=== PATIENT | male | born 2000 | race Caucasian/White ===

== ENCOUNTER 2023-10-14 13:28 | Emergency (ER) | payer OTHER ==
[~2023-10-14] VITALS: Ht 175.3 cm; Wt 79.4 kg
[2023-10-14] MEDS ORDERED: IPRATROPIUM BROMIDE 0.5 MG/2.5 ML NEBU NEB ONE (13:45)
[2023-10-14] MEDS ORDERED: ALBUTEROL SULFATE 2.5 MG/3 ML NEBU NEB ONE (13:45)
[2023-10-14] MEDS ORDERED: ALBUTEROL SULFATE 2.5 MG/3 ML NEBU ONE (14:21)
[2023-10-14] MEDS ORDERED: IPRATROPIUM BROMIDE 0.5 MG/2.5 ML NEBU ONE (14:21)
[2023-10-14 14:30] VITALS: O2SAT 96; O2SAT 98
[2023-10-14] MEDS ORDERED: PRED20TA PO (15:22)
[2023-10-14] MEDS ORDERED: ALBU18HF2 INH (15:22)
[2023-10-14] MEDS ORDERED: FLUT12AE20 INH (15:22)
[2023-10-14] MEDS ORDERED: DOXY100C5 PO (15:22)
[2023-10-14 15:47] VITALS: BP 122/69; O2SAT 98
== END 2023-10-14 15:48 | disposition home or self-care (01) ==
LOC: ER 13:28 → EDBD 13:28 → ER 15:48
DX: J20.9 Acute bronchitis, unspecified (principal); Z79.899 Other long term (current) drug therapy
CPT/HCPCS: 71045; A4606; A4663; J3590